=== PATIENT | female | born 1970 | race Caucasian/White ===

== ENCOUNTER → 2017-10-04 | Outpatient (CLI) | payer OTHER | END | disposition home or self-care (01) | LOC: TOM 10-03 08:30 | DX: R59.9 Enlarged lymph nodes, unspecified (principal) ==

== ENCOUNTER 2018-07-12 15:17 | Outpatient (CLI) | payer OTHER | END 2018-07-12 15:20 | disposition home or self-care (01) | LOC: SONOGRAMA 15:17 | DX: R59.9 Enlarged lymph nodes, unspecified (principal) ==